=== PATIENT | male | born 1960 | race Caucasian/White ===

== ENCOUNTER 2016-11-25 14:34 | Outpatient (CLI) | payer OTHER ==
--- NOTE | 2016-11-25 20:30 | RAD ---
LUMBAR SPINE THREE VIEWS: 11/25/16 Disc space narrowing is present at L1-L2 with prominent osteophytes at this level. Some minimal narr owing is seen at L2-L3. No fracture was seen. The SI joints appear normal. The aorta is partially ca lcified. IMPRESSION: Degenerative disc disease at L1-L2. POS: HOME
== END 2016-11-25 14:35 | disposition home or self-care (01) ==
LOC: BURRAD 14:34
PROVIDERS: ATTEND Family Medicine
DX: M54.41 Lumbago with sciatica, right side (principal); M51.36 Other intervertebral disc degeneration, lumbar region
CPT/HCPCS: 72100

== ENCOUNTER 2017-08-23 08:14 | Emergency (ER) | payer OTHER, SELFPAY ==
--- NOTE | 2017-08-23 19:38 | CT ---
CT BRAIN WITHOUT CONTRAST: 08/23/2017 HISTORY: A noncontrast CT was done following trauma. FINDINGS: The ventricles are normal in size with no shift. No intracranial bleeding or extraaxial hematoma is seen. There is no sign of acute stroke, mass, or edema. No fractures are demonstrated. There is severe mucosal thickening in the left maxillary sinus, left frontal sinus, and the ethmoid air cells bilaterally. Minimal mucosal thickening is seen in the righ t maxillary sinus. There are no air-fluid levels in the sphenoid sinus. The mastoid air cells are c lear. There is deviation of the nasal septum toward the left, which is probably chronic. IMPRESSION: 1. No acute intracranial findings. 2. Pansinusitis. Scan results called to Dr. Flores at 0913 hours on 08/23/2017. CODE CR POS: HOME
--- NOTE | 2017-08-23 19:42 | CT ---
CT CERVICAL SPINE: 08/23/2017 TECHNIQUE: A spiral CT of the neck was done following trauma. Axial slices were acquired and then coronal and s agittal reconstructions were done. FINDINGS: There was loss of the normal cervical lordosis. This may be due to muscle spasm. The C1 to dens dis tance is normal, and the soft tissues are normal in thickness. No fracture or dislocation is seen at any cervical level. Disk space narrowing is present at C5-C6 and at C6-C7. Findings by level follo w: C1-C2: No acute findings. C2-C3: No acute findings. C3-C4: No acute findings. C4-C5: Mild right foraminal narrowing due to osteophyte. C5-C6: Very mild bulging disk osteophyte complex centrally, probably with no impingement. There is some moderate right foraminal narrowing. C6-C7: Moderate bilateral foraminal narrowing, left greater than right, along with some left lateral recess stenosis. This could potentially impinge on the exiting nerve. C7-T1: No acute findings. T1-T2: No acute findings. The lung apices are clear. No gross soft tissue abnormalities in the neck are appreciated. IMPRESSION: 1. Loss of cervical lordosis, which may be due to muscle spasm. No fracture seen. 2. Mild to moderate degenerative changes, predominantly in the lower cervical spine. Scan results called to Dr. Flores at 0913 hours on 08/23/2017. POS: HOME
--- NOTE | 2017-08-23 19:59 | CT ---
CT LUMBAR SPINE: 08/23/2017 HISTORY: A spiral CT of the lumbar spine was performed following trauma. TECHNIQUE: Axial slices were acquired, and then coronal and sagittal reconstructions were done. FINDINGS: No fracture or dislocation is seen at any lumbar level. Disk space narrowing with a vacuum phenomeno n of the L1-L2 disk is noted. Disk degeneration is seen at L5-S1. There is very slight disk space n arrowing at L2-L3. The surrounding soft tissues are unremarkable. Findings by level follow: T11-T12: No acute findings. T12-L1: No acute findings. L1-L2: Some mild posterior osteophytes, but the AP diameter of the spinal canal at this level is sti ll at 1.4 cm, so is adequate. L2-L3: No acute finding. L3-L4: No acute findings. L4-L5: Mild concentric bulge of the disks with no signs of impingement. L5-S1: Diffusely concentrically bulging disk. While there is no focal herniation, the bulging disk may barely contact the exiting L5 nerve roots. The visible portions of the SI joints are unremarkable. IMPRESSION: Some degenerative changes noted, worse at the L1-L2 level. No acute thoracic findings. Scan results called to Dr. Flores at 0913 hours on 08/23/2017. POS: HOME
== END 2017-08-23 09:24 | disposition home or self-care (01) ==
LOC: BURERS 08:14
DX: M62.838 Other muscle spasm (principal); I10 Essential (primary) hypertension; J45.909 Unspecified asthma, uncomplicated; F17.210 Nicotine dependence, cigarettes, uncomplicated; V89.2XXA Person injured in unspecified motor-vehicle accident, traffic, initial encounter
CPT/HCPCS: 70450; 72125; 72131

== ENCOUNTER 2019-05-22 11:50 | Outpatient (CLI) | payer OTHER ==
[~2019-05-22 11:50] MED LIST: Iopamidol 370 76% 100 ML VIAL ONE
[2019-05-22 12:21] LABS: Anion Gap 17 mmol/L (10-20); BUN (Urea Nitrogen) 20 mg/dL (8.4-25.7); Calc. Creatinine Clearance 0 mL/min (70-130); Carbon Dioxide 27 mmol/L (22-29); Chloride 94 mmol/L (98-107); Estimated GFR-MDRD 40; Glucose 91 mg/dL (70-105); Potassium 3.1 mmol/L (3.5-5.1); Sodium 135 mmol/L (136-145)
--- NOTE | 2019-05-23 07:36 | CT ---
CT head without and with IV contrast HISTORY: Tremor. An apical pupils. FINDINGS: There is no evidence of acute intracranial hemorrhage or infarct. The ventricles appear nor mal in size, shape and position. There is no mass effect, shift of midline structures, or abnormal areas of contrast enhancement. Mild mucosal thickening within the sphenoid sinus and ethmoid air cells. IMPRESSION: No intracranial abnormalities are demonstrated.
== END 2019-05-22 11:51 | disposition home or self-care (01) ==
LOC: BURCT 11:50
PROVIDERS: ATTEND Family Medicine
DX: R25.1 Tremor, unspecified (principal); H57.02 Anisocoria; I10 Essential (primary) hypertension
CPT/HCPCS: 36415; 70470; 80048; Q9967

== ENCOUNTER 2020-07-25 13:29 | Emergency (ER) | payer OTHER ==
[2020-07-25] MEDS ORDERED: Ibuprofen 800 MG TAB ONE (13:58)
== END 2020-07-25 14:30 | disposition home or self-care (01) ==
LOC: BURERS 13:29
DX: S90.32XA Contusion of left foot, initial encounter (principal); I10 Essential (primary) hypertension; J45.909 Unspecified asthma, uncomplicated; F17.210 Nicotine dependence, cigarettes, uncomplicated; W20.8XXA Other cause of strike by thrown, projected or falling object, initial encounter

== ENCOUNTER 2020-10-28 18:37 | Emergency (ER) | payer OTHER ==
[2020-10-28] MEDS ORDERED: Lidocaine 1% PF 5 ML VIAL ONE (19:13)
[2020-10-28] MEDS ORDERED: Bacitracin 1 PK ONE (19:13)
[2020-10-28] MEDS ORDERED: Boostrix 0.5 ML (Tdap) VIAL ONE (19:17)
[2020-10-28] MEDS ORDERED: Sodium Chloride 0.9% 100 ML ONE (19:17)
[2020-10-28] MEDS ORDERED: CEFAZOLIN 1 GM VIAL ONE (19:17)
[2020-10-28] MEDS ORDERED: Ketorolac Tromethamine 30 MG/ML VIAL ONE (19:32)
== END 2020-10-28 19:44 | disposition home or self-care (01) ==
LOC: BURERS 18:37
DX: S51.812A Laceration without foreign body of left forearm, initial encounter (principal); I10 Essential (primary) hypertension; J45.909 Unspecified asthma, uncomplicated; F17.210 Nicotine dependence, cigarettes, uncomplicated; Z23 Encounter for immunization; W26.0XXA Contact with knife, initial encounter
CPT/HCPCS: 90715; J0690; J1885; J3490

== ENCOUNTER 2020-10-29 08:06 | Emergency (ER) | payer OTHER ==
[2020-10-29] MEDS ORDERED: Acetaminophen 325 MG TAB ONE (08:27)
== END 2020-10-29 08:50 | disposition home or self-care (01) ==
LOC: BURERS 08:06
DX: S51.812A Laceration without foreign body of left forearm, initial encounter (principal); I10 Essential (primary) hypertension; J45.909 Unspecified asthma, uncomplicated; F17.210 Nicotine dependence, cigarettes, uncomplicated; W26.0XXA Contact with knife, initial encounter; Z23 Encounter for immunization
CPT/HCPCS: 12002; 90471; 90715; 96365; 96375; 99282; J0690; J1885; J3490

== ENCOUNTER 2020-11-09 07:23 | Emergency (ER) | payer OTHER | END 2020-11-09 07:52 | disposition home or self-care (01) | LOC: BURERS 07:23 | DX: S51.812D Laceration without foreign body of left forearm, subsequent encounter (principal); I10 Essential (primary) hypertension; J45.909 Unspecified asthma, uncomplicated; F17.210 Nicotine dependence, cigarettes, uncomplicated; Z79.899 Other long term (current) drug therapy; W26.0XXD Contact with knife, subsequent encounter | CPT/HCPCS: 99281 ==

== ENCOUNTER 2022-06-19 01:38 | Emergency (ER) | payer OTHER ==
[2022-06-19 02:38] LABS: ALT (SGPT) 29 U/L (8-55); AST (SGOT) 122 U/L (5-34); Albumin 4.2 g/dL (3.4-4.8); Anion Gap 18 mmol/L (10-20); BUN (Urea Nitrogen) 7 mg/dL (8.4-25.7); Calc. Creatinine Clearance 0 mL/min (70-130); Calcium 8.4 mg/dL (7.8-10.44); Carbon Dioxide 25 mmol/L (23-31); Chloride 100 mmol/L (98-107); Estimated GFR 104; Globulin 3.4 g/dL (2.4-3.5); Glucose 88 mg/dL (80-115); Potassium 2.8 mmol/L (3.5-5.1); Protein, Total 7.6 g/dL (5.8-8.1); Sodium 140 mmol/L (136-145)
[2022-06-19 02:41] LABS: Acetaminophen Less than 10.0 mcg/mL (10.0-30.0); Alcohol 254 mg/dL (Less than 10); Salicylate Less than 8.0 mg/dL (15.0-30.0)
[2022-06-19 02:47] LABS: Alkaline Phosphatase 56 U/L (40-110)
[2022-06-19 02:48] LABS: #Eosinphils 0.1 thou/uL (0.0-0.7); #Lymphocytes 1.1 thou/uL (1.20-3.40); #Monocytes 0.3 thou/uL (0.11-0.59); #Neutrophils 7.5 thou/uL (1.40-6.50); %Basophils 0.5 % (0.0-1.0); %Eosinophils 0.7 % (0.0-10.0); %Lymphocytes 12.3 % (21.0-51.0); %Monocytes 3.8 % (0.0-10.0); %Neutrophils 82.7 % (42.0-75.0); Hemoglobin 12.9 g/dL (14.0-18.0); Mean Corpuscular HGB CONC 32.9 g/dL (32.0-36.0); Mean Corpuscular Hemoglobin 33.1 pg (27.0-31.0); Mean Platelet Volume 7.4 fL (7.4-10.4); Platelet Count 78 10x3/uL (130-400); RBC Distribution Width 13.3 % (11.5-14.5); Red Blood Cell (RBC) Count 3.91 mill/uL (4.70-6.10); White Blood Cell (WBC) Count 9.1 10x3/uL (4.8-10.8)
[2022-06-19 03:52] LABS: Amphetamine Detected (NotDetected); Barbiturates Screen Not Detected (NotDetected); Benzodiazepine Screen Not Detected (NotDetected); Cocaine Metabolite Screen Detected (NotDetected); Methadone Not Detected (NotDetected); Methamphetamine Detected (NotDetected); Opiate Screen Not Detected (NotDetected); Oxycodone Screen Not Detected (NotDetected); Phencyclidine (PCP) Not Detected (NotDetected); THC/Cannabinoid Screen Detected (NotDetected); Tricyclic Screen Not Detected (NotDetected)
[2022-06-19] MEDS ORDERED: Potassium Chloride 20 MEQ TAB ONE (05:29)
[2022-06-19 05:33] LABS: Magnesium 1.3 mg/dL (1.6-2.6)
[2022-06-19] MEDS ORDERED: Lorazepam 2 MG/ML VIAL ONE (06:15)
[2022-06-19 07:10] LABS: Potassium 3.1 mmol/L (3.5-5.1)
[2022-06-19] MEDS ORDERED: Pot Chloride/Pot Bicarb/Cit Ac 25 mEq Effervescent Tablet ONE (09:04)
[2022-06-19] MEDS ORDERED: Iopamidol 370 76% 100 ML VIAL ONE (10:14)
== END 2022-06-19 09:09 | disposition home or self-care (01) ==
LOC: BURERS 01:38
DX: K22.4 Dyskinesia of esophagus (principal); E87.6 Hypokalemia; I10 Essential (primary) hypertension; F17.210 Nicotine dependence, cigarettes, uncomplicated
CPT/HCPCS: 36415; 70491; 80053; 80306; 80307; 83735; 85025; 93005; 96361; 96365; 96375; J2060; Q9967